=== PATIENT | male | born 1980 | race African-American/Black ===

== ENCOUNTER 2019-12-30 11:44 | Emergency (ER) | payer BC ==
--- NOTE | 2019-12-30 12:35 | EDM.PDOC ---
ED HPI GENERAL MEDICAL PROBLEM - General Chief Complaint: Gastrointestinal Problem Stated Complaint: DIAHREA WEAKNESS Time Seen by Provider: 12/30/19 11:50 Source of Information: Reports: Patient History Limitations: Reports: No Limitations - History of Present Illness INITIAL COMMENTS - FREE TEXT/NARRATIVE: Patient presents to ER with complaints of diarrhea and weakness. Started having issues with loose stools about 36 hours ago. Had 5 loose stools yesterday and one so far today. Was at work this am and started feeling weak, lightheaded when he gets up from a chair or bends over. He relates that is is a diabetic, thought maybe related to his blood sugar so did drink orange juice. He still feels weak. Denies any nausea/vomiting/abdominal pain. Has not had a fever. Works at a [employer]. Has not travelled anywhere. Has not had any recent antibiotics. Duration: Day(s):, Waxing/Waning Location: Reports: Abdomen Severity: Mild Associated Symptoms: Reports: Malaise, Weakness. Denies: Chest Pain, Cough, Diaphoresis, Fever/Chills, Headaches, Loss of Appetite, Nausea/Vomiting, Shortness of Breath - Related Data Allergies Allergy/AdvReac Type Severity Reaction Status Date / Time ibuprofen [From Advil] Allergy Swelling Verified 02/16/19 08:00 MDT Home Meds: Home Meds metFORMIN HCl [Metformin HCl] 1,000 mg PO BID 02/15/19 [History] Insulin Glarg,Human.Rec.Analog [Lantus Solostar] 26 unit SUBCUT DAILY 12/30/19 [ History] Past Medical History HEENT History: Reports: Impaired Vision Other HEENT History: reading eyeglasses. Eye surgery. Cardiovascular History: Reports: High Cholesterol, Hypertension Endocrine/Metabolic History: Reports: Diabetes, Type II - Infectious Disease History Infectious Disease History: Reports: Measles Social & Family History - Tobacco Use Smoking Status *Q: Never Smoker - Caffeine Use Caffeine Use: Reports: Coffee Other Caffeine Use: occasional only when working nocts. - Recreational Drug Use Recreational Drug Use: No - Living Situation & Occupation Living situation: Reports: Occupation: Employed ED ROS GENERAL - Review of Systems Review Of Systems: See Below Constitutional: Reports: Malaise, Weakness, Fatigue. Denies: Fever, Chills HEENT: Denies: Ear Pain, Sinus Problem, Throat Pain Respiratory: Denies: Shortness of Breath, Cough Cardiovascular: Reports: Lightheadedness. Denies: Chest Pain, Edema Endocrine: Reports: Fatigue GI/Abdominal: Reports: Diarrhea. Denies: Abdominal Pain, Nausea, Vomiting : Reports: No Symptoms Musculoskeletal: Reports: No Symptoms Skin: Reports: No Symptoms Neurological: Reports: Weakness ED EXAM, GI/ABD - Physical Exam Exam: See Below Exam Limited By: No Limitations General Appearance: Alert, WD/WN, No Apparent Distress Ears: Normal External Exam, Normal TMs Nose: Normal Inspection, Normal Mucosa, No Blood Throat/Mouth: Normal Inspection, Normal Oropharynx Head: Normocephalic Neck: Normal Inspection, Supple, Non-Tender Respiratory/Chest: No Respiratory Distress, Lungs Clear, Normal Breath Sounds Cardiovascular: Regular Rate, Rhythm GI/Abdominal Exam: Normal Bowel Sounds, Soft, Non-Tender Extremities: Normal Inspection, No Pedal Edema Neurological: Alert, Oriented Skin Exam: Warm, Dry Course - Vital Signs Last Recorded V/S: Last Vital Signs Temp 98 F 12/30/19 11:45 Pulse 64 12/30/19 11:45 Resp 16 12/30/19 11:45 BP 145/86 H 12/30/19 11:45 Pulse Ox 99 12/30/19 11:45 - Orders/Labs/Meds Orders: Active Orders 24 hr Category Date Time Status Sodium Chloride 0.9% [Normal Saline] 1,000 ml Med 12/30/19 12:42 Active IV ONETIME Medication Orders Sodium Chloride (Normal Saline) 1,000 mls @ 999 mls/hr IV ONETIME ONE Stop: 12/30/19 13:42 Last Admin: 12/30/19 12:45 Dose: 999 mls/hr Labs: Laboratory Tests 12/30/19 12/30/19 12/30/19 Range/Units 12:12 12:12 12:21 WBC 6.0 (4.0-10.0) x10^3/uL RBC 5.40 (4.5-6.0) x10^6/uL Hgb 12.5 L (14.0-18.0) g/dL Hct 38.1 L (40.0-52.0) % MCV 70.6 L (78.0-93.0) fL MCH 23.1 L (26.0-32.0) pg MCHC 32.8 (32.0-36.0) g/dL RDW Coeff of Erick 14.2 (10.0-15.0) % Plt Count 234 (130-400) x10^3/uL Add Manual Diff Yes Neutrophils % (Manual) 62 (50-80) % Band Neutrophils % 5 (0-6) % Lymphocytes % (Manual) 17 L (25-50) % Reactive Lymphs % 7 H (0) % Monocytes % (Manual) 7 (2-11) % Eosinophils % (Manual) 1 (0-4) % Basophils % (Manual) 1 (0-1) % Platelet Estimate Adequate Microcytosis 1+ slight H Spherocytes 1+ slight H Ovalocytes 1+ slight H Sodium 139 (136-145) mmol/L Potassium 4.9 (3.5-5.1) mmol/L Chloride 105 (98-107) mmol/L Carbon Dioxide 26 (21-32) mmol/L Anion Gap 12.9 (10-20) mmol/L BUN 15 (7-18) mg/dL Creatinine 1.2 (0.70-1.30) mg/dL Est Cr Clr Drug Dosing 70.47 mL/min Estimated GFR (MDRD) > 60 Glucose 176 H (74-106) mg/dL Calcium 8.9 (8.5-10.1) mg/dL Corrected Calcium 9.30 (8.5-10.1) mg/dL Total Bilirubin 0.5 (0.2-1.0) mg/dL AST 21 (15-37) U/L ALT 26 (16-63) U/L Alkaline Phosphatase 77 (46-116) U/L C-Reactive Protein 1.9 H (<=0.9) mg/dL Total Protein 7.9 (6.4-8.2) g/dL Albumin 3.5 (3.4-5.0) g/dL Globulin 4.4 Albumin/Globulin Ratio 0.80 Urine Color Dark yellow H (YELLOW) Urine Appearance Clear (CLEAR) Urine pH 5.0 (5.0-8.0) Ur Specific [place] >=1.030 Urine Protein 100 H (NEGATIVE) mg/dL Urine Glucose (UA) 100 H (NEGATIVE) mg/dL Urine Ketones 15 H (NEGATIVE) mg/dL Urine Occult Blood Negative (NEGATIVE) Urine Nitrite Negative (NEGATIVE) Urine Bilirubin Small H (NEGATIVE) Urine Urobilinogen 0.2 (0.2) EU/dL Ur Leukocyte Esterase Negative (NEGATIVE) U Hyaline Cast (Auto) Many Urine RBC 0-5 (NOT SEEN) /HPF Urine WBC 0-5 (NOT SEEN) /HPF Ur Squamous Epith Cells Few H (NEGATIVE) /HPF Urine Bacteria Not seen (NEGATIVE) /HPF Urine Mucus Rare H (NEGATIVE) /LPF Meds: Medications Generic Name Dose Route Start Last Admin Trade Name Freq PRN Reason Stop Dose Admin Sodium Chloride 1,000 mls @ 999 mls/hr 12/30/19 12:42 12/30/19 12:45 Normal Saline IV 12/30/19 13:42 999 mls/hr ONETIME ONE Administration Discontinued Medications Generic Name Dose Route Start Last Admin Trade Name Freq PRN Reason Stop Dose Admin Lactated Ringer's 1,000 mls @ 999 mls/hr 12/30/19 12:38 Ringers, Lactated IV 12/30/19 13:38 ONETIME ONE - Re-Assessments/Exams Free Text/Narrative Re-Assessment/Exam: 12/30/19 12:43 Labs are all essentially normal. Specific gravity greater than 1.030. Will give liter of IV fluids. Patient informed of all results. 12/30/19 13:18 Patient doing well Departure - Departure Time of Disposition: 13:18 Disposition: Home, Self-Care 01 Condition: Fair Clinical Impression: Gastroenteritis - Discharge Information *PRESCRIPTION DRUG MONITORING PROGRAM REVIEWED*: No *COPY OF PRESCRIPTION DRUG MONITORING REPORT IN PATIENT KAYLEEN: No Instructions: Viral Gastroenteritis, Adult, [id number] Forms: ED Department Discharge Additional Instructions: 1. Push fluids 2. Rest 3. Immodium as needed for ongoing diarrhea 4. If have ongoing stools over the next 4-5 days, may need further evaluation and stool studies. 5. Tylenol for discomfort 6. Follow up with primary care provider if concerns. Sepsis Event Note - Evaluation Sepsis Screening Result: No Definite Risk - Focused Exam Vital Signs: Vital Signs Temp Pulse Resp BP Pulse Ox 12/30/19 11:45 98 F 64 16 145/86 H 99 Date Exam was Performed: 12/30/19 Time Exam was Performed: 13:18 - My Orders Last 24 Hours: My Active Orders 12/30/19 12:42 Sodium Chloride 0.9% [Normal Saline] 1,000 ml IV ONETIME - Assessment/Plan Last 24 Hours: My Active Orders 12/30/19 12:42 Sodium Chloride 0.9% [Normal Saline] 1,000 ml IV ONETIME
[2019-12-30 12:36] LABS: ANION GAP 12.9 mmol/L (10-20); CHLORIDE,CL 105 mmol/L (98-107); SODIUM,NA 139 mmol/L (136-145)
[2019-12-30] MEDS ORDERED: Lactated Ringers 1,000 ML IV ONE (12:38)
[2019-12-30] MEDS ORDERED: Sodium Chloride 0.9% 1,000 ML IV ONE (12:42)
== END 2019-12-30 13:35 | disposition home or self-care (01) ==
LOC: VM.ED 11:44
DX: K52.9 Noninfective gastroenteritis and colitis, unspecified (principal); I10 Essential (primary) hypertension; E11.9 Type 2 diabetes mellitus without complications; Z79.4 Long term (current) use of insulin; Z88.6 Allergy status to analgesic agent
CPT/HCPCS: 36415; 80053; 81001; 85025; 86140; 96360; 99284-25; J7030

== ENCOUNTER 2020-06-29 14:43 | Emergency (ER) | payer BC ==
[2020-06-29] MEDS: cloNIDine 0.1 MG Tab PO ONE (15:18)
--- NOTE | 2020-06-29 15:39 | EDM.PDOC ---
ED HPI GENERAL MEDICAL PROBLEM - General Chief Complaint: General Stated Complaint: dizziness/hypertension Time Seen by Provider: 06/29/20 14:50 Source of Information: Reports: Patient History Limitations: Reports: No Limitations - History of Present Illness INITIAL COMMENTS - FREE TEXT/NARRATIVE: Patient presents to ER with complaints of generalized malaise, not feeling well. Has had 3 episodes today of dizziness and double vision that lasted for about 1 minute each time. 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 Has history of hypertension, checked his blood pressure last 2-3 days ago, states was 180/64. Has been working long hours, 16 hour shifts. No chest pain. No shortness of breath. Denies nausea. Is on several blood pressure meds, did take them this morning as prescribed. Has history of diabetes, insulin dependent. Did not check his blood sugar with any of these episodes. Denies feeling weak. No nausea. No vomiting or diarrhea. Onset: Today Duration: Minutes: Location: Reports: Head, Generalized Severity: Mild Improves with: Reports: Rest Associated Symptoms: Reports: Weakness. Denies: Confusion, Chest Pain, Cough, Fever/Chills, Loss of Appetite, Nausea/Vomiting, Shortness of Breath - Related Data Allergies Allergy/AdvReac Type Severity Reaction Status Date / Time ibuprofen [From Advil] Allergy Swelling Verified 06/29/20 14:57 Home Meds: Home Meds metFORMIN HCl [Metformin HCl] 1,000 mg PO BID 02/15/19 [History] Insulin Glarg,Human.Rec.Analog [Lantus Solostar] 5 - 10 unit SUBCUT DAILY 12/30/19 [History] Metoprolol Succinate [Toprol Xl] 100 mg PO BID 06/29/20 [History] Ondansetron [Zofran ODT] 4 mg PO Q6H PRN 06/29/20 [History] cloNIDine [Catapres] 0.1 mg PO Q12HR 06/29/20 [History] glipiZIDE [Glipizide ER] 10 mg PO BID 06/29/20 [History] lisinopriL [Lisinopril] 40 mg PO DAILY 06/29/20 [History] Past Medical History HEENT History: Reports: Impaired Vision Other HEENT History: reading eyeglasses. Eye surgery. Cardiovascular History: Reports: High Cholesterol, Hypertension Endocrine/Metabolic History: Reports: Diabetes, Type II - Infectious Disease History Infectious Disease History: Reports: Measles Social & Family History - Tobacco Use Smoking Status *Q: Never Smoker - Caffeine Use Caffeine Use: Reports: Coffee Other Caffeine Use: occasional only when working nocts. - Recreational Drug Use Recreational Drug Use: No - Living Situation & Occupation Living situation: Reports: Occupation: Employed ED ROS GENERAL - Review of Systems Review Of Systems: See Below Constitutional: Reports: Malaise, Weakness, Fatigue. Denies: Fever, Chills, Decreased Appetite HEENT: Reports: Vertigo. Denies: Ear Pain, Sinus Problem, Throat Pain Respiratory: Denies: Shortness of Breath, Cough Cardiovascular: Denies: Chest Pain, Edema, Lightheadedness Endocrine: Reports: Fatigue GI/Abdominal: Denies: Abdominal Pain, Nausea, Vomiting : Reports: No Symptoms Musculoskeletal: Reports: No Symptoms Skin: Reports: No Symptoms Neurological: Reports: Dizziness, Weakness. Denies: Headache ED EXAM, GENERAL - Physical Exam Exam: See Below Exam Limited By: No Limitations General Appearance: Alert, WD/WN, No Apparent Distress Ears: Normal External Exam, Normal TMs Throat/Mouth: Normal Inspection, Normal Oropharynx Head: Normocephalic Neck: Normal Inspection, Supple, Non-Tender Respiratory/Chest: No Respiratory Distress, Lungs Clear, Normal Breath Sounds Cardiovascular: Regular Rate, Rhythm, No Edema GI/Abdominal: Normal Bowel Sounds, Soft, Non-Tender Extremities: Normal Inspection, No Pedal Edema Neurological: Alert, Oriented, CN II-XII Intact, Normal Cognition, Normal Gait, Normal Reflexes, No Motor/Sensory Deficits Course - Vital Signs Last Recorded V/S: Last Vital Signs Temp 98.2 F 06/29/20 15:01 Pulse 61 06/29/20 15:53 Resp 16 06/29/20 15:53 BP 153/85 H 06/29/20 15:53 Pulse Ox 97 06/29/20 15:53 - Orders/Labs/Meds Orders: Active Orders 24 hr Category Date Time Status EKG 12 Lead [EKG Documentation Completion] [RC] AM Care 06/29/20 15:02 Active UA RFX EFRAIN AND CULT IF INDIC [URIN] Stat Lab 06/29/20 15:20 Ordered Labs: Laboratory Tests 06/29/20 06/29/20 06/29/20 Range/Units 15:15 15:15 15:20 WBC 5.5 (4.0-10.0) x10^3/uL RBC 5.06 (4.5-6.0) x10^6/uL Hgb 11.9 L (14.0-18.0) g/dL Hct 36.2 L (40.0-52.0) % MCV 71.5 L (78.0-93.0) fL MCH 23.5 L (26.0-32.0) pg MCHC 32.9 (32.0-36.0) g/dL RDW Coeff of Erick 14.0 (10.0-15.0) % Plt Count 155 D (130-400) x10^3/uL Neut % (Auto) 50.1 (50.0-80.0) % Lymph % (Auto) 41.8 (25.0-50.0) % [place] % (Auto) 7.2 (2.0-11.0) % Eos % (Auto) 0.7 (0.0-4.0) % Baso % (Auto) 0.2 (0.2-1.2) % Sodium 138 (136-145) mmol/L Potassium 3.9 (3.5-5.1) mmol/L Chloride 101 (98-107) mmol/L Carbon Dioxide 30 (21-32) mmol/L Anion Gap 10.9 (10-20) mmol/L BUN 13 (7-18) mg/dL Creatinine 1.1 (0.70-1.30) mg/dL Est Cr Clr Drug Dosing 76.10 mL/min Estimated GFR (MDRD) > 60 Glucose 200 H (74-106) mg/dL Calcium 9.1 (8.5-10.1) mg/dL Corrected Calcium 9.42 (8.5-10.1) mg/dL Total Bilirubin 0.4 (0.2-1.0) mg/dL AST 22 (15-37) U/L ALT 25 (16-63) U/L Alkaline Phosphatase 75 (46-116) U/L Troponin I < 0.017 (<=0.056) ng/mL Total Protein 7.6 (6.4-8.2) g/dL Albumin 3.6 (3.4-5.0) g/dL Globulin 4.0 Albumin/Globulin Ratio 0.90 Urine Color Light yellow (YELLOW) Urine Appearance Clear (CLEAR) Urine pH 6.0 (5.0-8.0) Ur Specific [place] 1.010 Urine Protein Negative (NEGATIVE) mg/dL Urine Glucose (UA) 100 H (NEGATIVE) mg/dL Urine Ketones Negative (NEGATIVE) mg/dL Urine Occult Blood Negative (NEGATIVE) Urine Nitrite Negative (NEGATIVE) Urine Bilirubin Negative (NEGATIVE) Urine Urobilinogen 0.2 (0.2) EU/dL Ur Leukocyte Esterase Negative (NEGATIVE) Meds: Medications Discontinued Medications Generic Name Dose Route Start Last Admin Trade Name Faith PRN Reason Stop Dose Admin Clonidine HCl 0.1 mg 06/29/20 15:02 06/29/20 15:18 Catapres PO 06/29/20 15:03 0.1 mg ONETIME ONE Administration - Re-Assessments/Exams Free Text/Narrative Re-Assessment/Exam: 06/29/20 16:06 EKG sent to content writer as shows elevated ST in V2. Did not feel could call a STEMI related to one lead. Advised to ensure potassium and troponin were both negative and if needed, repeat enzymes if develops any chest discomfort. Patient informed of lab results, EKG findings. Blood pressure improved from giving additional clonidine dose. 153/85. Patient states overall is feeling better. Advised patient that he would need to return for repeat blood tests if develops any changes, chest pain, shortness of breath or neurological changes. Departure - Departure Time of Disposition: 16:11 Disposition: Home, Self-Care 01 Condition: Good Clinical Impression: Hypertensive urgency - Discharge Information *PRESCRIPTION DRUG MONITORING PROGRAM REVIEWED*: No *COPY OF PRESCRIPTION DRUG MONITORING REPORT IN PATIENT KAYLEEN: No Instructions: Hypertension, Adult, [id number] Forms: ED Department Discharge Additional Instructions: 1. Rest 2. Push fluids 3. Avoid excessive caffeine, salt 4. Increase Clonidine to three times per day 5. Continue to monitor blood pressure 1-2 times per day at different time intervals and if any dizziness or headache 6. Return if develop chest pain, shortness of breath, increasing headaches or dizziness. 7. Recheck with primary care provider next week Sepsis Event Note (ED) - Evaluation Sepsis Screening Result: No Definite Risk - Focused Exam Vital Signs: Vital Signs Temp Pulse Resp BP BP Pulse Ox 06/29/20 15:53 61 16 153/85 H 97 06/29/20 15:18 188/107 H 06/29/20 15:01 98.2 F 59 L 16 193/94 H 98 - My Orders Last 24 Hours: My Active Orders 06/29/20 15:02 EKG 12 Lead [EKG Documentation Completion] [RC] AM 06/29/20 15:20 UA RFX EFRAIN AND CULT IF INDIC [URIN] Stat - Assessment/Plan Last 24 Hours: My Active Orders 06/29/20 15:02 EKG 12 Lead [EKG Documentation Completion] [RC] AM 06/29/20 15:20 UA RFX EFRAIN AND CULT IF INDIC [URIN] Stat
[2020-06-29 15:44] LABS: ANION GAP 10.9 mmol/L (10-20); CHLORIDE,CL 101 mmol/L (98-107); SODIUM,NA 138 mmol/L (136-145)
== END 2020-06-29 16:25 | disposition home or self-care (01) ==
LOC: VM.ED 14:43
DX: I16.0 Hypertensive urgency (principal); E11.9 Type 2 diabetes mellitus without complications; Z79.899 Other long term (current) drug therapy; Z79.4 Long term (current) use of insulin; Z88.6 Allergy status to analgesic agent
CPT/HCPCS: 36415; 80053; 81003; 84484; 85025; 93005; 99284; A9270

== ENCOUNTER 2021-04-21 07:45 | Emergency (ER) | payer BC, OTHER ==
[2021-04-21] MEDS ORDERED: Ondansetron 4 MG/2 ML SDV IVPUSH ONE (08:17)
[2021-04-21 08:40] LABS: ANION GAP 12.9 mmol/L (5-15); CHLORIDE,CL 105 mmol/L (98-107); SODIUM,NA 139 mmol/L (136-145)
[2021-04-21] MEDS ORDERED: cloNIDine 0.1 MG Tab PO ONE ×2 (08:55→09:40)
--- NOTE | 2021-04-21 09:43 | EDM.PDOC ---
ED HPI GENERAL MEDICAL PROBLEM - General Chief Complaint: Cardiovascular Problem Stated Complaint: HBP Time Seen by Provider: 04/21/21 08:45 Source of Information: Reports: Patient - History of Present Illness INITIAL COMMENTS - FREE TEXT/NARRATIVE: Reji is a 40 y/o male who comes to the ER via POV reporting that he does not feel well. 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 His blood sugar was fine, but his BP was elevated in the 200s/100s range. His drove him here to the ER. He has been seen last bu a PCP in [place]. - Related Data Allergies Allergy/AdvReac Type Severity Reaction Status Date / Time ibuprofen [From Advil] Allergy Swelling Verified 04/21/21 09:32 Home Meds: Home Meds metFORMIN HCl [Metformin HCl] 1,000 mg PO BID 02/15/19 [History] Insulin Glarg,Human.Rec.Analog [Lantus Solostar] 16 - 18 unit SUBCUT BID 12/30/19 [History] Ondansetron [Zofran ODT] 4 mg PO Q6H PRN 06/29/20 [History] glipiZIDE [Glipizide ER] 10 mg PO DAILY 06/29/20 [History] lisinopriL [Lisinopril] 40 mg PO DAILY 06/29/20 [History] Acetaminophen [Tylenol Extra Strength] 1,000 mg PO Q6H PRN 04/21/21 [History] Docusate Sodium [Colace] 100 mg PO BID 04/21/21 [History] Rosuvastatin Calcium [Crestor] 40 mg PO BEDTIME 04/21/21 [History] amLODIPine [Norvasc] 2.5 mg PO DAILY 04/21/21 [History] carvediloL [Coreg] 25 mg PO BID 04/21/21 [History] lisinopriL [Lisinopril] 20 mg PO BEDTIME 04/21/21 [History] polyethylene glycoL 3350 [MiraLAX] 17 gm PO DAILY 04/21/21 [History] Past Medical History HEENT History: Reports: Impaired Vision Other HEENT History: reading eyeglasses. Eye surgery. Cardiovascular History: Reports: High Cholesterol, Hypertension Endocrine/Metabolic History: Reports: Diabetes, Type II - Infectious Disease History Infectious Disease History: Reports: Measles Social & Family History - Caffeine Use Caffeine Use: Reports: Coffee Other Caffeine Use: occasional only when working nocts. - Living Situation & Occupation Living situation: Reports: Occupation: Employed ED ROS GENERAL - Review of Systems Review Of Systems: See Below Constitutional: Reports: Malaise HEENT: Reports: No Symptoms Respiratory: Reports: No Symptoms Cardiovascular: Reports: No Symptoms Endocrine: Reports: No Symptoms GI/Abdominal: Reports: Nausea Musculoskeletal: Reports: No Symptoms Skin: Reports: No Symptoms Neurological: Reports: No Symptoms Psychiatric: Reports: No Symptoms Hematologic/Lymphatic: Reports: No Symptoms Immunologic: Reports: No Symptoms ED EXAM, GENERAL - Physical Exam Exam: See Below General Appearance: Alert, WD/WN, No Apparent Distress (Adult male.) Eye Exam: Bilateral Eye: PERRL Ears: Normal External Exam, Hearing Grossly Normal Nose: Normal Inspection, Normal Mucosa Throat/Mouth: Normal Inspection, Normal Lips, Normal Oropharynx, Normal Voice, Perioral Cyanosis Head: Atraumatic Neck: Normal Inspection, Supple Respiratory/Chest: No Respiratory Distress, Lungs Clear, Chest Non-Tender Cardiovascular: Normal Peripheral Pulses, Regular Rate, Rhythm, No Edema, No Murmur GI/Abdominal: Normal Bowel Sounds, Soft, Non-Tender (Male) Exam: Deferred Rectal (Males) Exam: Normal Exam, Deferred Back Exam: Normal Inspection Extremities: Normal Inspection, Normal Range of Motion, No Pedal Edema Neurological: Alert, Oriented, CN II-XII Intact, Normal Cognition, Normal Gait, No Motor/Sensory Deficits Psychiatric: Normal Affect, Normal Mood Skin Exam: Warm, Dry, Intact, Normal Color Lymphatic: No Adenopathy Course - Vital Signs Text/Narrative:: 0845 The patient was seen by the [employer]IREMENT [employer] MANAGER. Chart reviewed. Labs done. He was given Zofran 4mg po for nausea. Clonidine 0.1mg po given for BP 187/95. Patient reports that he has only been taking his Coreg in the AM and not at night, which could be contributing to his elevated BP. 0935 BP recheck 175/96. Patient resting and reports feeling better. CBC, UA neg. CMP neg other a [id number]. Clonidine 0.1mg po repeated. 1015 BP 162/92. Will discharge to home. Will have him follow up with a PCP for further BP management. He was given discharge instructions and left the ER in stable condition. Last Recorded V/S: Last Vital Signs Temp 36.6 C 04/21/21 08:00 Pulse 56 L 04/21/21 08:00 Resp 16 04/21/21 08:00 BP 173/93 H 04/21/21 09:55 Pulse Ox 99 04/21/21 08:00 - Orders/Labs/Meds Labs: Laboratory Tests 04/21/21 04/21/21 04/21/21 Range/Units 08:00 08:10 08:10 WBC 5.7 (4.0-10.0) x10^3/uL RBC 5.09 (4.5-6.0) x10^6/uL Hgb 11.8 L (14.0-18.0) g/dL Hct 35.4 L (40.0-52.0) % MCV 69.5 L (78.0-93.0) fL MCH 23.2 L (26.0-32.0) pg MCHC 33.3 (32.0-36.0) g/dL RDW Coeff of Erick 16.0 H (10.0-15.0) % Plt Count 161 (130-400) x10^3/uL Neut % (Auto) 54.7 (50.0-80.0) % Lymph % (Auto) 35.6 (25.0-50.0) % [place] % (Auto) 7.9 (2.0-11.0) % Eos % (Auto) 1.6 (0.0-4.0) % Baso % (Auto) 0.2 (0.2-1.2) % Sodium 139 (136-145) mmol/L Potassium 3.9 (3.5-5.1) mmol/L Chloride 105 (98-107) mmol/L Carbon Dioxide 25 (21-32) mmol/L Anion Gap 12.9 (5-15) mmol/L BUN 14 (7-18) mg/dL Creatinine 1.0 (0.70-1.30) mg/dL Est Cr Clr Drug Dosing TNP Estimated GFR (MDRD) > 60 Glucose 160 H (70-99) mg/dL Calcium 8.4 L (8.5-10.1) mg/dL Corrected Calcium 8.7 (8.5-10.1) mg/dL Total Bilirubin 0.2 (0.2-1.0) mg/dL AST 25 (15-37) U/L ALT 20 (16-63) U/L Alkaline Phosphatase 70 (46-116) U/L Total Protein 7.7 (6.4-8.2) g/dL Albumin 3.6 (3.4-5.0) g/dL Globulin 4.1 Albumin/Globulin Ratio 0.88 Urine Color Yellow (YELLOW) Urine Appearance Clear (CLEAR) Urine pH 5.5 (5.0-8.0) Ur Specific [place] >=1.030 Urine Protein Negative (NEGATIVE) mg/dL Urine Glucose (UA) Negative (NEGATIVE) mg/dL Urine Ketones Negative (NEGATIVE) mg/dL Urine Occult Blood Negative (NEGATIVE) Urine Nitrite Negative (NEGATIVE) Urine Bilirubin Negative (NEGATIVE) Urine Urobilinogen 0.2 (0.2) EU/dL Ur Leukocyte Esterase Negative (NEGATIVE) Meds: Medications Discontinued Medications Generic Name Dose Route Start Last Admin Trade Name Faith PRN Reason Stop Dose Admin Clonidine HCl 0.1 mg 04/21/21 08:55 04/21/21 09:03 Clonidine 0.1 Mg Tab PO 04/21/21 08:56 0.1 mg ONETIME ONE Administration Clonidine HCl 0.1 mg 04/21/21 09:40 04/21/21 09:45 Clonidine 0.1 Mg Tab PO 04/21/21 09:41 0.1 mg ONETIME ONE Administration Ondansetron HCl 4 mg 04/21/21 08:17 04/21/21 08:40 Ondansetron 4 Mg/2 Ml Sdv IVPUSH 04/21/21 08:18 4 mg ONETIME ONE Administration Departure - Departure Time of Disposition: 10:14 Disposition: Home, Self-Care 01 Preliminary Cause of *Q: Cardiac Arrest Condition: Good, Fair Clinical Impression: Nausea, Uncontrolled hypertension Instructions: Hypertension, Adult Referrals: PCP,Not In Area [Primary Care Provider] - Forms: ED Department Discharge Additional Instructions: -Resume all medications as prescribed. -MAKE SURE YOU ARE TAKING THE COREG (CARVEDILOL) 25mg TWICE DAILY!!! -Rest today -Call to make an appt at the [facility] for follow up and further medication management -Return to the ER for any concerns Sepsis Event Note (ED) - Focused Exam Vital Signs: Vital Signs Temp Pulse Resp BP BP Pulse Ox 04/21/21 09:55 173/93 H 04/21/21 09:45 175/96 H 04/21/21 09:30 175/96 H 04/21/21 09:03 170/96 H 04/21/21 09:00 178/97 H 04/21/21 08:30 170/96 H 04/21/21 08:00 36.6 C 56 L 16 187/95 H 99
== END 2021-04-21 10:20 | disposition home or self-care (01) ==
LOC: VM.ED 07:45
DX: I10 Essential (primary) hypertension (principal); R11.0 Nausea; E78.00 Pure hypercholesterolemia, unspecified; E11.9 Type 2 diabetes mellitus without complications; Z79.4 Long term (current) use of insulin; Z79.899 Other long term (current) drug therapy; Z88.6 Allergy status to analgesic agent
CPT/HCPCS: 80053; 81003; 85025; 96374; 99283-25; 99284; A9270-GY; J2405